=== PATIENT | male | born 1975 ===

== ENCOUNTER 2018-09-06 12:30 | Inpatient (IN) | payer OTHER ==
[~2018-09-06] VITALS: Ht 172.7 cm; Wt 85.3 kg
[2018-09-13] MEDS ORDERED: INTESTINEX680 M1 PO (11:26)
[2018-09-13] MEDS ORDERED: PERCOCET 5-3251 EACH PO (11:26)
[2018-09-13] MEDS ORDERED: OMEPRAZOLE20 MG PO (11:26)
== END 2018-09-13 13:13 | disposition home or self-care (01) | DRG 331 ==
LOC: ADM 12:30 → EDSTATUS 12:30 → O/R 09-10 09:27 → SURG 09-10 09:27 → EDSTATUS 09-10 12:30 → SURG 09-10 14:42
PROVIDERS: Surgery
PROC: 07TC4ZZ Resection of Pelvis Lymphatic, Percutaneous Endoscopic Approach (ICD-10-PCS; 2018-09-10)
PROC: 0DJD8ZZ Inspection of Lower Intestinal Tract, Via Natural or Artificial Opening Endoscopic (ICD-10-PCS; 2018-09-10)
PROC: 0DTN4ZZ Resection of Sigmoid Colon, Percutaneous Endoscopic Approach (ICD-10-PCS; principal; 2018-09-10 16:45)
DX: C18.7 Malignant neoplasm of sigmoid colon (principal); R59.0 Localized enlarged lymph nodes

== ENCOUNTER 2018-09-09 12:02 | Day surgery (SDC) | payer OTHER | END 2018-09-09 16:50 | disposition home or self-care (01) | LOC: AMB-ENDOS 12:02 | DX: C18.7 Malignant neoplasm of sigmoid colon (principal) ==

== ENCOUNTER 2019-12-05 06:07 | Day surgery (SDC) | payer OTHER ==
[~2019-12-05 06:07] MED LIST: INTESTINEX680 M1 PO; OMEPRAZOLE20 MG PO; PERCOCET 5-3251 EACH PO
== END 2019-12-05 11:15 | disposition home or self-care (01) ==
LOC: AMB-ENDOS 06:07 → ADM 13:15
DX: K62.1 Rectal polyp (principal); K63.5 Polyp of colon; K57.30 Diverticulosis of large intestine without perforation or abscess without bleeding

== ENCOUNTER 2020-12-31 06:00 | Day surgery (SDC) | payer OTHER | END 2020-12-31 10:00 | disposition home or self-care (01) | LOC: AMB-ENDOS 06:00 | PROVIDERS: ATTEND Surgery | DX: D12.2 Benign neoplasm of ascending colon (principal); K64.0 First degree hemorrhoids; Z20.822 Contact with and (suspected) exposure to COVID-19 ==